=== PATIENT | female | born 1970 | race American Indian/Alaskan Native ===

== ENCOUNTER 2021-10-25 11:46 | Emergency (ER) | payer OTHER ==
[2021-10-25] MEDS ORDERED: SODIUM CHLORIDE 0.9% 1000 ML 1,000 ML IV ONE (12:47)
[2021-10-25] MEDS ORDERED: ONDANSETRON 4 MG/2 ML INJ IV ONE (13:04)
--- NOTE | 2021-10-25 13:17 | XRay Report ---
CHEST 1 VIEW 10/25/2021 12:56 PM INDICATION / CLINICAL INFORMATION: Chest Pain. COMPARISON: None available. FINDINGS: SUPPORT DEVICES: None. HEART / MEDIASTINUM: No significant abnormality. LUNGS / PLEURA: No significant pulmonary or pleural abnormality. No pneumothorax. ADDITIONAL FINDINGS: No significant additional findings. IMPRESSION: No acute abnormality. Signer Name: Zay Valdez MD Signed: 10/25/2021 1:13 PM Workstation Name: [id number]
[2021-10-25 13:29] LABS: Basophils % (Auto) 0.4 % (0.0-1.8); Eosinophils % (Auto) 0.1 % (0.0-4.3); Lymphocytes % (Auto) 12.2 % (13.4-35.0); Mean Corpuscular HGB Conc 33 % (30-34); Mean Corpuscular Volume 71 fl (79-97); Monocytes # (Auto) 0.6 K/mm3 (0.0-0.8); Monocytes % (Auto) 7.5 % (0.0-7.3); Platelet Count 191 K/mm3 (140-440); Red Cell Distribution Width 15.8 % (13.2-15.2)
[2021-10-25 13:38] LABS: INR 0.84 (0.87-1.13)
[2021-10-25 13:39] LABS: Alanine Aminotransferase 26 units/L (7-56); Albumin 4.3 g/dL (3.9-5); Blood Urea Nitrogen 8 mg/dL (7-17); Calcium 10.2 mg/dL (8.4-10.2); Hemolysis Index 7
[2021-10-25 13:50] LABS: BUN/Creatinine Ratio 11
--- NOTE | 2021-10-25 15:30 | Cat Scan Report ---
CT BRAIN: 10/25/2021 INDICATION / CLINICAL INFORMATION: ams. COMPARISON: None available. FINDINGS: BRAIN/INTRACRANIAL STRUCTURES: Unenhanced CT images of the brain demonstrate no evidence of acute abn ormality. Ventricles and sulci are slightly prominent in size, consistent with some mild age-related atrophic c hange. Patchy areas of chronic white matter hypoattenuation is noted, consistent with chronic small vessel i schemic change. There is no evidence of acute ischemic injury, hemorrhage, or mass. There are no abnormal extra-axial fluid collections. EXTRACRANIAL STRUCTURES: Unremarkable. IMPRESSION: No acute abnormality. All CT scans at this location are performed using dose reduction to ALARA by means of automated expos ure control. Signer Name: Dionicio Schmid MD Signed: 10/25/2021 3:21 PM Workstation Name: [id number]
[2021-10-25 16:18] LABS: Bilirubin,Urine NEG (Negative); Blood,Urine NEG (Negative); Color,Urine Yellow (Yellow); Protein,Urine <15 mg/dL mg/dL (Negative); Urobilinogen,Urine < 2.0 mg/dL (<2.0)
[2021-10-25 16:26] LABS: Bacteria,Urine 1+ /HPF (Negative); Mucus,Urine FEW /HPF
[2021-10-25 16:27] LABS: Amphetamine Screen,Urine Negative; Benzodiazepines Screen,Urine Negative; Cannabinoid Screen,Urine Negative; Cocaine Screen,Urine Negative; Methadone Screen,Urine Negative; Opiate Screen,Urine Negative
--- NOTE | 2021-10-25 17:17 | Emergency Department Report ---
ED General Adult HPI - General Chief complaint: Chest Pain Stated complaint: CHEST PAIN Time Seen by Provider: 10/25/21 12:07 Source: EMS Mode of arrival: Stretcher Limitations: No Limitations - History of Present Illness Initial comments: chest pain in center of chest x30 min. reports sob, vss, nadn. pt had benadryl last night , woke up feeling weak and fainting but didn;t pass out -: Gradual, days(s) Radiation: non-radiation Severity scale (0 -10): 10 Associated Symptoms: chest pain, weakness. denies: denies other symptoms, confusion - Related Data Allergies Allergy/AdvReac Type Severity Reaction Status Date / Time No Known Allergies Allergy Verified 10/25/21 11:53 ED Review of Systems ROS: Stated complaint: CHEST PAIN Other details as noted in HPI Constitutional: denies: chills, fever Eyes: denies: eye pain, eye discharge, vision change ENT: denies: ear pain, throat pain Respiratory: denies: cough, shortness of breath, wheezing Cardiovascular: denies: chest pain, palpitations Endocrine: no symptoms reported Gastrointestinal: denies: abdominal pain, nausea, diarrhea Genitourinary: denies: urgency, dysuria, discharge Musculoskeletal: denies: back pain, joint swelling, arthralgia Skin: denies: rash, lesions Neurological: denies: headache, weakness, paresthesias Psychiatric: denies: anxiety, depression Hematological/Lymphatic: denies: easy bleeding, easy bruising ED Past Medical Hx - Past Medical History Previous Medical History?: No Hx Hypertension: No ED Physical Exam - General Limitations: No Limitations General appearance: alert, in no apparent distress - Head Head exam: Present: atraumatic, normocephalic - Eye Eye exam: Present: normal appearance - ENT ENT exam: Present: mucous membranes moist - Neck Neck exam: Present: normal inspection - Respiratory Respiratory exam: Present: normal lung sounds bilaterally. Absent: respiratory distress - Cardiovascular Cardiovascular Exam: Present: regular rate, normal rhythm. Absent: systolic murmur, diastolic murmur, rubs, gallop - GI/Abdominal GI/Abdominal exam: Present: soft, normal bowel sounds - Extremities Exam Extremities exam: Present: normal inspection - Back Exam Back exam: Present: normal inspection - Neurological Exam Neurological exam: Present: alert, oriented X3 - Psychiatric Psychiatric exam: Present: normal affect, normal mood - Skin Skin exam: Present: warm, dry, intact, normal color. Absent: rash ED Course Vital Signs 10/25/21 11:53 Temperature 99 F Pulse Rate 95 H Respiratory 20 Rate Blood Pressure 130/90 [Right] O2 Sat by Pulse 99 Oximetry ED Medical Decision Making - Lab Data Result diagrams: 10/25/21 12:56 10/25/21 12:56 - EKG Data -: EKG Interpreted by Me EKG shows normal: sinus rhythm Rate: tachycardia - Radiology Data Radiology results: report reviewed, image reviewed - Medical Decision Making work up negative uti noted ct head x ray clear , vss , no distress , fluids given spoke with dr holly over tez, will set up a soon appt with tez for follow up Critical care attestation.: If time is entered above; I have spent that time in minutes in the direct care of this critically ill patient, excluding procedure time. ED Disposition Clinical Impression: Dizziness, Weakness Disposition: 01 HOME / SELF CARE / HOMELESS Is pt being admited?: No Does the pt Need Aspirin: No Condition: Stable Referrals: DANIELLE KERN [Other] - 3-5 Days
[2021-10-25 17:36] VITALS: BP 134/64
--- NOTE | 2021-10-26 12:11 | Electrocardiograph Report ---
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
== END 2021-10-25 17:35 | disposition home or self-care (01) ==
LOC: ED 11:46
DX: R07.9 Chest pain, unspecified (principal); R42 Dizziness and giddiness; R53.1 Weakness; Z79.899 Other long term (current) drug therapy
CPT/HCPCS: 36415; 70450; 71045; 80053; 80307; 81001; 83690; 83880; 84484; 85025; 85610; 86140; 87086; 93005; 96361; 96374; 99285; J2405; J7030